=== PATIENT | female | born 1965 | race Two or more races ===

== ENCOUNTER 2018-12-28 11:07 | Emergency (ER) | payer SELFPAY ==
[~2018-12-28] VITALS: Ht 160 cm; Wt 67.6 kg
[2018-12-28 11:13] VITALS: Ht 160 cm; Wt 67.6 kg
[2018-12-28 11:53] LABS: CALCIUM 8.9 mg/dL (8.5-10.1); CARBON DIOXIDE 28.6 mmol/L (21-32); CHLORIDE SERUM 106 mmol/L (98-107); CREATININE SERUM 0.6 mg/dL (0.6-1.0); GFR1 > 60 mL/min; GLUCOSE SERUM 90 mg/dL (74-106); POTASSIUM SERUM 4.1 mmol/L (3.5-5.1); SODIUM SERUM 142 mmol/L (136-145)
[2018-12-28 11:57] LABS: ALBUMIN 3.6 g/dL (3.4-5.0); ALKALINE PHOSPHATASE 96 U/L (46-116); ALT/SGPT 32 U/L (14-59); BILIRUBIN TOTAL 0.27 mg/dL (0.20-1.00); TOTAL PROTEIN, SERUM 7.5 g/dL (6.4-8.2)
[2018-12-28 11:58] LABS: CHOLESTEROL 134 mg/dL (<200)
[2018-12-28 12:02] LABS: BASOPHIL % 0.5 % (0-2); PLATELET COUNT 343 x10^3mcL (130-400)
[2018-12-28 12:10] LABS: AST/SGOT 11 U/L (15-37); RED CELL DISTRIBUTION WIDTH 15.5 % (11.5-14.5)
[2018-12-28 13:21] VITALS: BP 121/75
== END 2018-12-28 13:21 | disposition home or self-care (01) ==
LOC: ED 11:07
PROVIDERS: Specialist
DX: S09.90XA Unspecified injury of head, initial encounter (principal); R55 Syncope and collapse; R00.2 Palpitations; Z90.89 Acquired absence of other organs; Z98.51 Tubal ligation status; Z98.890 Other specified postprocedural states
CPT/HCPCS: 36415; G0480; Q0092